=== PATIENT | male | born 1960 | race African-American/Black ===

== ENCOUNTER → 2016-10-30 | Day surgery (SDC) | payer OTHER, BC ==
[~2016-10-30] MED LIST: CENTRUM SILVER1 EAC4 PO; NO MEDICATIONS
--- NOTE | ~2016-10-30 | OR ---
Unit #: [id number] #: [id number] Patient: PLACIDO STODDARD [id number] [facility]. [address] [place], [place] [address] [id number] O MR#: [id number] NAME: PLACIDO STODDARD ROOM: Date of Procedure: 10/30/2016 Admission Date: 10/30/2016 Surgeon: Senthil Perez Jr., M.D. : 1960 Attending Physician: Senthil Perez Jr., M.D. Referring Physician: Senthil Perez Jr., M.D. OPERATIVE REPORT INDICATIONS FOR PROCEDURE The patient is a 56-year-old black male who recently presented to the office complaining of bulge and pain in the left inguinal area. On examination, was noted to have a fairly large left inguinal hernia. He was brought in this time for repair of this at his request. PREOPERATIVE DIAGNOSIS Symptomatic left inguinal hernia. POSTOPERATIVE DIAGNOSES Symptomatic left inguinal hernia, noting a very large sac with significant scarring to the spermatic cord. ANESTHESIA General with LMA and 0.5% Marcaine with epinephrine locally. PROCEDURE PERFORMED Left inguinal hernia repair using high ligation of the sac with plug and patch technique. DESCRIPTION OF PROCEDURE The patient was positioned in the supine position. After being anesthetized, he was prepped and draped in routine fashion with localized anesthesia with 0.5% Marcaine with epinephrine. A transverse incision was made over the left inguinal canal approximately 3 to 4 inch in length. This was carried down through subcutaneous tissue down through Carson and Camper fascia and the external oblique fascia. The fibers of the external oblique were split up through the external ring up toward the internal ring. The ilioinguinal nerve was identified and retracted laterally to avoid any damage or entrapment. The cord structures were elevated from the pubic tubercle back to the internal ring, and there was a very large indirect sac with no obvious incarcerated tissue within it. It was significantly scarred to the spermatic cord, and there was a significant amount of dissection required to free the sac from the cord. It was then opened and transected with a small portion going down toward the testicle, and it was split and the neck of it was checked at the internal ring, and there was obvious scar tissue present. There was no evidence of any incarcerated tissue within it. It was then high ligated with 0 Ethibond pursestring, followed by 0 Ethibond transfixion stitch. The redundant portion of the sac was then excised and retracted well up into the internal ring. There was a fairly large defect in the internal ring and a large cone shaped mesh was then placed with the plug and patch technique, Unit #: [id number] #: [id number] Patient: PLACIDO STODDARD plug being sutured in place with interrupted 0 Ethibond sutures and the patch was placed over the entire floor of the inguinal canal, down to the pubic tubercle and around the cord structures. This was all done with interrupted 0 Ethibond sutures. The cord was then checked. There was no evidence of any ischemia noted, and minimal amount of bleeding which was controlled with the Bovie cautery where appropriate or a couple of 3-0 silk stick ties. The vas and vessels were intact. The wound was irrigated with antibiotic solution, which was also used to presoak the plug and patch. After this was completed, and all irrigation fluid removed, again the area was checked and there was no evidence of any active bleeding. The external oblique fascia was then closed with continuous 3-0 Vicryl suture. Carson and Camper fascia was approximated with interrupted 3-0 Vicryl sutures. Skin edges were approximated with stainless-steel skin clips and skin stapling device. Sterile dressings were applied externally. Estimated blood loss less than 50 mL. The patient received less than 2000 mL of crystalloid solution during the procedure. Sponges and instruments counts were correct x3. No drains were used. No complications. The patient was taken to the recovery room with stable vital signs in satisfactory condition. Dictated by... Senthil Perez Jr., M.D. JMB/leonarda TD: 10/31/2016 16:01 JOB #: [id number] CC: Senthil Perez Jr., M.D. OPERATIVE REPORT Page 1 of 1 X Senthil Perez MD X PROCEDURE OPERATIVE NOTE
== END | disposition home or self-care (01) ==
LOC: CSUR 12:17
DX: K40.90 Unilateral inguinal hernia, without obstruction or gangrene, not specified as recurrent (principal); Z79.899 Other long term (current) drug therapy
CPT/HCPCS: 88302; J0690; J2250; J2405; J3010